=== PATIENT | female | born 1980 | race African-American/Black ===

== ENCOUNTER 2016-11-30 16:25 | Inpatient (IN) ==
--- NOTE | 2016-11-30 17:30 | Diag Imaging Result Doc PS360 ---
CHEST-2 VIEWS - 11/30/2016 INDICATION: cough TECHNIQUE: COMPARISON: 08/02/2016 FINDINGS: There is worsening in the moderate enlargement of the heart shadow. Pulmonary vascularity is normal. No focal infiltrates, pneumothorax, or pleural effusion. IMPRESSION: Worsening enlargement of the heart shadow consistent with either pericardial effusion or cardiomegaly. On the prior CT of 07/30/2016, this was global cardiomegaly. Electronically signed by Juliano Escudero 11/30/2016 5:27 PM
[2016-11-30] MEDS ORDERED: APRESOLINE IV ONE ×2 (18:01→19:16)
[2016-11-30 18:23] LABS: MANUAL DIFF NEEDED? NO
[2016-11-30] MEDS ORDERED: CATAPRES ONE (18:27)
[2016-11-30] MEDS ORDERED: CATAPRES PO ONE (18:29)
[2016-11-30 18:31] LABS: BASO% 0.3 % (0.0-0.8); EOS# 0.07 X1000 (0.0-0.7); EOS% 0.9 % (0.0-10.0); HEMATOCRIT 27.6 % (37.0-47.0); HEMOGLOBIN 8.4 g/dL (12.0-16.0); IMM GRAN# 0.02 X1000 (0.0-0.04); IMM GRAN% 0.3 % (0.0-0.5); LYMPH# 1.55 X1000 (1.2-3.4); LYMPH% 20.8 % (20.5-51.1); MCH 22.9 PG (27-31); MCHC 30.4 g/dL (33-37); MCV 75.2 FL (81-99); MONO# 0.58 X1000 (0.11-0.59); MONO% 7.8 % (1.7-9.3); MPV 10.8 FL (7.4-10.4); NEUT% 69.9 % (42.2-75.2); PLT 276 X1000 (130-400); RBC 3.67 XMIL (4.2-5.4)
[2016-11-30 18:40] LABS: PTT PL 27.9 Seconds (22.6-43.9)
[2016-11-30 18:44] LABS: INR 1.23 (0.86-1.15); PROTIME 15.8 Seconds (12.1-15.5)
[2016-11-30 18:48] LABS: AGAP 10; ALBUMIN 3.3 g/dL (3.5-5.0); ALKALINE PHOSPHATASE 62 U/L (32-104); BUN 6 mg/dL (8-22); CALCIUM 8.4 mg/dL (8.8-10.2); CHLORIDE 105 mmol/L (98-107); CK PROFILE 93 U/L (24-173); COSMO 272; GOT 31 U/L (10-30); GPT 35 U/L (10-36); POTASSIUM 3.1 mmol/L (3.5-5.1); SODIUM 137 mmol/L (136-145); TCO2 23 mmol/L (25-35); TOTAL PROTEIN 6.6 g/dL (6.3-8.3)
--- NOTE | 2016-11-30 18:57 | PROVIDER DOCUMENTATION ---
HPI-General Adult - General Chief Complaint: Cough Stated Complaint: COUGH/COLD SX/SOB Time Seen by Provider: 11/30/16 17:30 Source: patient Allergies/Adverse Reactions: Patient Allergies Allergy/AdvReac Type Severity Reaction Status Date / Time No Known Allergies Allergy Verified 11/30/16 16:45 Home Medications: Home Medication List Medication Instructions Recorded Confirmed Last Taken Type Amlodipine [Norvasc] 5 mg PO DAILY #30 tablet 08/03/16 11/30/16 Unknown Rx Carvedilol [Coreg] 12.5 mg PO BID #60 tablet 08/03/16 11/30/16 Unknown Rx Iron Carbonyl/Ascorbic Acid 1 each PO DAILY #30 tablet 08/03/16 11/30/16 Unknown Rx [Icar-C] LISINOpril [Prinivil] 20 mg PO DAILY #30 tablet 08/03/16 11/30/16 Unknown Rx Omeprazole [Prilosec] 40 mg PO DAILY #30 capsule. 08/03/16 11/30/16 Unknown Rx - History of Present Illness -Gen Adult Nature of Presenting Problems: pt presents complaining of 2 week history of nonproductive cough, dyspnea, pedal edema. Longstanding history of HTN. Not followed by a PCP. unclear what BP meds she is taking. Denies cp, headache, fever, back pain, abd pain, n/ v. Location of Pain/Injury: reports: none Pain Radiation: reports: no radiation Onset/Duration: reports: last week Timing: reports: still present Modifying Factors: improves with: nothing Similar Symptoms Previously?: No Recently seen or treated by another doctor?: No Review of Systems - Adult - REVIEW OF SYSTEMS - ADULT Constitutional: reports: no symptoms reported Eyes: reports: no symptoms reported Ears, Nose, Mouth & Throat: reports: no symptoms reported. denies: ear pain, sinus problem, throat pain Cardiovascular: reports: no symptoms reported Respiratory: reports: see HPI Gastrointestinal: reports: no symptoms reported. denies: abdominal pain, nausea Genitourinary: reports: no symptoms reported Musculoskeletal: reports: no symptoms reported Integumentary: reports: no symptoms reported Neurological: reports: no symptoms reported. denies: ataxia, dizziness/vertigo , paresthesia Psychiatric: reports: no symptoms reported Endocrine: reports: no symptoms reported Hematologic/Lymphatic: reports: no symptoms reported Allergic/Immunologic: reports: no symptoms reported All Other Systems: Reviewed and Negative Past History - Adult - PAST MEDICAL HISTORY-ADULT Review of Records: reports: Old Records Reviewed, Nursing Assessment Review, Medications Reviewed, Social history reviewed & non-contributory. Major Childhood Illnesses: reports: denies history Cardiovascular: reports: HTN Respiratory: reports: denies history Gastrointestinal: reports: denies history Obstetrical/Gynecological: reports: denies history Genitourinary: reports: denies history Musculoskeletal: reports: arthritis, chronic pain Neurological: reports: denies history Endocrine/Immune: reports: denies history Other Conditions: reports: denies history - PRIOR SURGERIES/PROCEDURES Surgical/Procedure History: reports: BTL, other (esophageal dilation) - PRIOR HOSPITALIZATIONS Prior Hospitalizations: reports: none - IMMUNIZATION STATUS Childhood Immunizations: See Nurse Assessment Flu Vaccine: See Nurse Assessment - FAMILY HISTORY Family History: reviewed, not pertinent - SOCIAL HISTORY Smoking: denies Substance Use: none/never Alcohol Use Frequency: never Living Situation: family Physical Exam-General - PHYSICAL EXAM-ADULT Initial Vital Signs Reviewed: Yes - CONSTITUTIONAL General Appearance: appears well, alert - EYES Eyes: PERRL/EOMI, other (pain conjunctivae) - HEAD, EARS, NOSE, MOUTH & THROAT HENMT: normocephalic/atraumatic, moist mucous membranes, normal ENT inspection - NECK Neck: non-tender, full range of motion, supple - RESPIRATORY Respiratory: lungs clear, normal breath sounds - CARDIOVASCULAR Cardiovascular: normal peripheral pulses, regular rate, rhythm - GASTROINTESTINAL (ABDOMEN) Abdominal Exam: non tender, soft - MUSCULOSKELETAL Back Exam: normal inspection Extremity: normal range of motion, pedal edema (+1 bilateral). 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, grossly normal, no motor/sensory deficits - PSYCHIATRIC Psych/Mental Status: normal mood/affect, oriented x 3 Progress - PLAN OF CARE/RESULTS Progress/Plan/Lab Results: Vital Signs - 8 hr 11/30/16 16:40 11/30/16 17:58 11/30/16 18:54 Temperature 97.9 F 98.7 F Pulse Rate 93 H 89 95 H Respiratory Rate 18 20 20 Blood Pressure 175/122 178/134 204/133 O2 Sat by Pulse Oximetry 100 95 97 Laboratory Results - last 24 hr 11/30/16 11/30/1611/30/17 18:18 18:18 18:18 WBC 7.44 RBC 3.67 L Hgb 8.4 L Hct 27.6 L MCV 75.2 L MCH 22.9 L MCHC 30.4 L RDW Std Deviation 19.9 H Plt Count 276 MPV 10.8 H Immature Gran % (Auto) 0.3 Neut % (Auto) 69.9 Lymph % (Auto) 20.8 [place] % (Auto) 7.8 Eos % (Auto) 0.9 Baso % (Auto) 0.3 Immature Gran # (Auto) 0.02 Neut # (Auto) 5.20 Lymph # (Auto) 1.55 [place] # (Auto) 0.58 Eos # (Auto) 0.07 Baso # (Auto) 0.02 PT INR APTT (Factor Assay) Sodium 137 Potassium 3.1 L Chloride 105 Carbon Dioxide 23 L Anion Gap 10 BUN 6 L Creatinine 0.9 Estimated GFR/1.73 m2 > 60 BUN/Creatinine Ratio 7 Glucose 101 Calculated Osmolality 272 Calcium 8.4 L Total Bilirubin 0.30 AST 31 H ALT 35 Alkaline Phosphatase 62 Creatine Kinase 93 Troponin T < 0.010 Total Protein 6.6 Albumin 3.3 L Globulin 3.0 Albumin/Globulin Ratio 1.0 Urine Test 11/30/16 11/30/16 18:18 18:31 WBC RBC Hgb Hct MCV MCH MCHC RDW Std Deviation Plt Count MPV Immature Gran % (Auto) Neut % (Auto) Lymph % (Auto) Carl[place] % (Auto) Eos % (Auto) Baso % (Auto) Immature Gran # (Auto) Neut # (Auto) Lymph # (Auto) Carl[place] # (Auto) Eos # (Auto) Baso # (Auto) PT 15.8 H INR 1.23 H APTT (Factor Assay) 27.9 Sodium Potassium Chloride Carbon Dioxide Anion Gap BUN Creatinine Estimated GFR/1.73 m2 BUN/Creatinine Ratio Glucose Calculated Osmolality Calcium Total Bilirubin AST ALT Alkaline Phosphatase Creatine Kinase Troponin T Total Protein Albumin Globulin Albumin/Globulin Ratio Urine Test NEGATIVE Orders Category Date Time Status Cardiac Monitoring DIRECTED Care 11/30/16 18:01 Active Saline Loc NOW Care 11/30/16 18:01 Active CHEST-2 VIEWS [RAD] Stat Exams 11/30/16 16:53 Completed CBC WITH ELECTRONIC DIFF [HEME] Stat Lab 11/30/16 18:18 Completed CK PROFILE [SP CHEM] Stat Lab 11/30/16 18:18 Completed COMPREHENSIVE METABOLIC PANEL [CHEM] Stat Lab 11/30/16 18:18 Completed TEST-URINE [PREG] Stat Lab 11/30/16 18:31 Completed PRO B-NATRIURETIC PEPTIDE Stat Lab 11/30/16 18:18 Received PROTIME WITH INR PL [COAG] Stat Lab 11/30/16 18:[address] [COAG] Stat Lab 11/30/16 18:18 Completed TROPONIN T Stat Lab 11/30/16 18:18 Completed UA NIMS W/REFLEX CULT PL [URINALYSIS] Stat Lab 11/30/16 18:31 Received Clonidine [Catapres] Med 11/30/16 18:27 Discontinued 0.2 mg .ROUTE .STK-MED ONE Clonidine [Catapres] Med 11/30/16 18:29 Discontinued 0.2 mg PO NOW ONE Hydralazine [Apresoline] Med 11/30/16 18:01 Discontinued 10 mg IV NOW ONE EKG [EKG] Stat Ther 11/30/16 18:01 Ordered Case and plan of care discussed with Dr. Mack. Pt refusing hemmocult. Result Diagrams: 11/30/16 18:18 11/30/16 18:18 - XRAY 1 XRAY Study: Chest Impression: See EMR Report XRAY Interpretation: enlarging cardiac shadow cardiomegaly vs effusion. - CONSULTS/PCP/HOSPITALIST Notification #1 *Consult/PCP/Hospitalist*: Dr. Singh Time Discussed: 19:10 Consult Disposition: Admit Departure - Departure Date of Disposition Decision: 11/30/16 Time of Disposition Decision: 19:23 DIAGNOSIS: Hypertensive emergency, Hypokalemia Anemia Qualifiers: Anemia type: unspecified type Qualified Code(s): D64.9 - Anemia, unspecified Disposition: ADMITTED INPATIENT 09 Certified Medical Emergency: Emergent Condition: Stable - Critical Care Note This patient required my direct & personal management of CC.: Yes Total Time (mins): 30 Critical Care Statement: This patient required my direct personal management to treat or rule out processes, the absence of which, could potentiallly result in sudden, clinically significant life or limb threatening deterioration. Attestation - Physician/ DA Attestation Patient care was provided by Advanced Practice Provider:: Yes Advanced Practice Provider:: Eulalio,Wilbert D Advanced Practice Provider documentation review:: The Mid-level provider documentation, treatment plan and medical decision making was reviewed by the physician who agrees with all treatment and medical decision making by the MLP.
[2016-11-30 18:58] LABS: BILIRUBIN URINE NEGATIVE (NEGATIVE); BLOOD URINE NEGATIVE (NEGATIVE); CLARITY CLEAR (CLEAR); COLOR YELLOW; GLUCOSE URINE NEGATIVE (NEGATIVE); LEUKOCYTES URINE TRACE (NEGATIVE); NITRITE URINE NEGATIVE (NEGATIVE); PH URINE 6.5; URINE CULTURE PL NEEDED? YES; URINE EPITHELIAL CELLS >10 /HPF (<10); URINE WBC <10 /HPF (<10); UROBILINOGEN URINE NORMAL
[2016-11-30 18:59] LABS: URINE CAST NONE SEEN /LPF; URINE CRYSTAL NONE SEEN /HPF; URINE SOURCE CLEAN CATCH
--- NOTE | 2016-11-30 19:15 | EKG Report ---
Test Performed on : 11/30/2016 7:10:46 PM Test Reason : CHEST PAIN Blood Pressure : / mmHG Vent. Rate : 092 BPM Atrial Rate : 092 BPM P-R Int : 160 ms QRS Dur : 104 ms QT Int : 400 ms P-R-T Axes : 049 023 -86 degrees QTc Int : 494 ms Normal sinus rhythm. Possible Left atrial enlargement ST \T\ T wave abnormality, consider inferior ischemia ST \T\ T wave abnormality, consider anterolateral ischemia Prolonged QT Abnormal ECG When compared with ECG of 30-JUL-2016 16:01, No significant change was found Unconfirmed Result
[2016-11-30] MEDS ORDERED: NITROGLYCERIN TOP ONE (19:16)
[2016-11-30] MEDS ORDERED: KLOR-CON PO ONE (19:24)
[2016-11-30] MEDS ORDERED: MORPHINE IV PRN (19:25)
[2016-11-30] MEDS ORDERED: ZOFRAN IV PRN (19:25)
[2016-11-30] MEDS: TYLENOL PO PRN (22:05)
[2016-11-30] MEDS ORDERED: VASELINE TOP PRN (22:07)
[2016-12-01] MEDS: TYLENOL PO PRN ×2 (05:55→21:18)
[2016-12-01] MEDS ORDERED: COREG PO SCH (09:00)
[2016-12-01] MEDS ORDERED: PRILOSEC PO SCH (09:00)
[2016-12-01] MEDS ORDERED: PRINIVIL PO SCH (09:00)
[2016-12-01] MEDS ORDERED: COZAAR PO SCH (09:00)
[2016-12-01 09:30] LABS: HEMATOCRIT 26.7 % (37.0-47.0); HEMOGLOBIN 8.2 g/dL (12.0-16.0); MCHC 30.7 g/dL (33-37); MCV 74.8 FL (81-99); MPV 11.5 FL (7.4-10.4); RBC 3.57 XMIL (4.2-5.4)
[2016-12-01 09:46] LABS: AGAP 11; ALBUMIN 3.2 g/dL (3.5-5.0); ALKALINE PHOSPHATASE 59 U/L (32-104); BUN 10 mg/dL (8-22); CALCIUM 8.2 mg/dL (8.8-10.2); CHLORIDE 103 mmol/L (98-107); COSMO 274; GOT 31 U/L (10-30); GPT 34 U/L (10-36); POTASSIUM 3.3 mmol/L (3.5-5.1); SODIUM 137 mmol/L (136-145); TCO2 23 mmol/L (25-35); TOTAL PROTEIN 6.2 g/dL (6.3-8.3)
[2016-12-01] MEDS: NORVASC PO SCH (09:53)
[2016-12-01] MEDS: ICAR-C PO SCH (09:53)
[2016-12-01] MEDS: APRESOLINE IV PRN ×2 (09:54→21:19)
[2016-12-01] MEDS: MORPHINE IV PRN ×2 (16:07→21:19)
--- NOTE | 2016-12-01 17:15 | HISTORY AND PHYSICAL ---
CHIEF COMPLAINT: Cough, dyspnea, lower extremity edema. HISTORY OF PRESENT ILLNESS: This is a 36-year-old female with a history of hypertension and esophageal stricture, who presented to the emergency room complaining of a nonproductive cough with dyspnea on exertion and lower extremity edema that has been present for roughly 2 weeks. She denied any chest pain, PND, or orthopnea. She does have a long history of hypertension, stating that she is really unclear of what blood pressures medicine she is taking. She does not have a primary care physician. She is unable to state where she actually got her prescriptions for her medicines. Her chest x-ray revealed worsening enlargement of the heart shadow consistent with pericardial effusion or cardiomegaly. On CT of 07/30/2016 there was global cardiomegaly. She was noted to have blood pressures in the 170s to 200s over 120-130 range for which she was given nitroglycerin, hydralazine, and clonidine in the emergency room with pressures coming down to the 150s to 170s over 80s to 90s. She was admitted to ICU for further evaluation and treatment. PAST MEDICAL HISTORY: Hypertension, noncompliance. PAST SURGICAL HISTORY: Denies. SOCIAL HISTORY: Denies alcohol, tobacco, or illicit drug use. HOME MEDICATIONS: A list will be obtained. PHYSICAL EXAMINATION: GENERAL: This is a 36-year-old female who is sitting in the bed, in no distress. VITAL SIGNS: Blood pressure is 156/89 with a heart rate of 76, respirations are 20, temperature is 98.2 degrees with room air saturations of 96 to 99%. HEENT: Head is normocephalic, atraumatic. Pupils equal, round, react to light. EOMs are intact. Sclerae anicteric. Mucous membranes are moist. NECK: Supple with trachea midline. CARDIOVASCULAR: Regular rate and rhythm. S1 and S2 appreciated. PULMONARY: Breath sounds are clear with no increased work of breathing noted. Chest does rise and fall symmetrically with respiration. GASTROINTESTINAL: Abdomen is soft, nontender, nondistended with bowel sounds in all 4 quadrants. BACK: No CVAT. No spine tenderness. MUSCULOSKELETAL: Good range of motion of joints. EXTREMITIES: No clubbing, cyanosis. She does have pretibial and pedal edema bilateral. Calves are nontender. Pulses are palpable x4. NEUROLOGIC: She is alert and oriented x3. Cranial nerves 2 through 12 grossly intact. DIAGNOSTICS: WBC is 7.4 with hemoglobin 8.4, hematocrit 27.6, and platelets of 276,000. Sodium is 137, potassium 3.1, BUN 6, creatinine 0.9, with a glucose of 101. Troponin is less than 0.010. Her chest x-ray revealed worsening enlargement of the heart shadow consistent with pericardial effusion or cardiomegaly. ASSESSMENT: 1. Cough. 2. Dyspnea on exertion. 3. Lower extremity edema. 4. Hypertension. 5. Noncompliance. 6. Global cardiomegaly on chest x-ray. 7. Anemia. 8. Hypertension, hypertensive emergency. 9. Hypokalemia. PLAN: She will be admitted to ICU for close monitoring. We will identify her home medications and continue as appropriate. We will obtain an echocardiogram. She did have an echocardiogram in July 2016 which revealed moderate to severe tricuspid regurgitation with severe pulmonary hypertension, moderate left ventricular enlargement with an EF of 30 to 35%, concentric hypertrophy. We will Hemoccult stools as she did have Hemoccult-positive stools in July 2016 during her hospitalization. Further treatments pending hospital course. Dictated by LIZETH Rivera for Michael Singh MD cc: LIZETH Rivera MD
[2016-12-01] MEDS: COREG PO SCH (21:18)
[2016-12-02 07:08] LABS: AGAP 9; ALBUMIN 3.2 g/dL (3.5-5.0); ALKALINE PHOSPHATASE 59 U/L (32-104); BUN 10 mg/dL (8-22); CALCIUM 8.1 mg/dL (8.8-10.2); CHLORIDE 106 mmol/L (98-107); COSMO 273; GOT 24 U/L (10-30); GPT 31 U/L (10-36); POTASSIUM 3.5 mmol/L (3.5-5.1); SODIUM 137 mmol/L (136-145); TCO2 22 mmol/L (25-35); TOTAL PROTEIN 6.3 g/dL (6.3-8.3)
[2016-12-02 07:09] LABS: HEMATOCRIT 27.6 % (37.0-47.0); HEMOGLOBIN 8.4 g/dL (12.0-16.0); MCHC 30.4 g/dL (33-37); MCV 75.4 FL (81-99); MPV 11.6 FL (7.4-10.4); RBC 3.66 XMIL (4.2-5.4)
[2016-12-02] MEDS: APRESOLINE PO SCH ×3 (08:06→16:08)
[2016-12-02] MEDS: ICAR-C PO SCH (08:06)
[2016-12-02] MEDS: PRILOSEC PO SCH (08:06)
[2016-12-02] MEDS: NORVASC PO SCH (08:06)
[2016-12-02] MEDS: COZAAR PO SCH (08:07)
[2016-12-02] MEDS: COREG PO SCH ×2 (08:07→20:11)
[2016-12-02] MEDS ORDERED: APRESOLINE PO SCH (09:00)
[2016-12-02] MEDS: MORPHINE IV PRN ×3 (09:24→20:11)
--- NOTE | 2016-12-02 13:50 | Diag Imaging Result Doc PS360 ---
EXAM: HEAD W/WO CONTRAST - 12/02/2016 HISTORY: HEADACHE TECHNIQUE: Without and with intravenous contrast. Dose reduction protocol. COMPARISON: None. FINDINGS: There is no evidence of intracranial hemorrhage, mass effect, midline shift, or hydrocephalus. There is no evidence of infarct, although acute infarcts may not be immediately visible. There is no abnormal enhancement identified. Visualized portions of paranasal sinuses and mastoid air cells appear clear. IMPRESSION: No visible acute intracranial abnormality. No hemorrhage, mass effect, or abnormal enhancement seen. Electronically signed by Fitz Culver 12/02/2016 1:47 PM
[2016-12-02] MEDS: APRESOLINE IV PRN ×2 (14:40→20:10)
--- NOTE | 2016-12-02 16:13 | CONSULTATION ---
DATE OF CONSULTATION: 12/02/2016 REASON FOR CONSULTATION: Cardiology was consulted for accelerated hypertension. HISTORY OF PRESENT ILLNESS: Ms. Rodgers is a 35-year-old black lady with history of hypertension diagnosed about 15 years back. She was admitted here with accelerated hypertension for the last 3 weeks. She says she has not had any medications. She ran out of the medications and did not refill them. She denies chest pain. She complains of having a headache which started recently. There is no retrosternal chest discomfort. She has dyspnea on exertion which is mild and stable. There is no orthopnea or paroxysmal nocturnal dyspnea. REVIEW OF SYSTEMS: A 14-point review of system was done.GI System: There is no history of nausea, vomiting, diarrhea. There is no history of melena. Central nervous system: There is no focal weakness to suggest a CVA or TIA. system: There is no dysuria or hematuria. Cardiovascular: When she came in, blood pressure was 170-200 and currently blood pressure was 180 systolic, was given hydralazine 10 mg IV. PAST MEDICAL HISTORY: Longstanding hypertension, noncompliant. PHYSICAL EXAMINATION: Vital Signs: Blood pressure 189/88. Cardiovascular: Normal jugular venous pressure. There is no thyromegaly. No carotid bruit. First and second heart sounds were heard. There is no S3 gallop. Respiratory: Normal air entry. There are no crepitations or rhonchi. Abdomen: Soft, obese, nontender. There was no guarding or rigidity. Bowel sounds were heard. Central nervous system: Alert and was moving all 4 extremities. Extremities: Examination of extremities revealed no pedal edema. ALLERGIES: Patient is not known to be allergic to any medication. SOCIAL HISTORY: She denies alcohol or tobacco abuse. LABORATORY AND RADIOLOGIC STUDIES: Head CT done revealed no obvious intracranial pathology. Sodium 137, potassium 3.5, BUN 10, creatinine 0.7. ProBNP 3027. Hematology: Hemoglobin 8.4 hematocrit 27, platelets 281,000. PROBLEM LIST: 1. Chronic anemia. 2. Uncontrolled accelerated hypertension. 3. Medical noncompliance. RECOMMENDATIONS: Her hydralazine dose was increased today as well as her beta blockers. We will increase the Norvasc to 5 mg a day. She is on multiple medications for blood pressure control and her problem has been with medical noncompliance. I suspect with the increase dosage, her blood pressure will be better controlled and we can increase the dose of hydralazine as well as diuretic should her blood pressure continue be elevated. Thank for the consult. cc: Pankaj Cifuentes MD
--- NOTE | 2016-12-02 16:59 | PROGRESS NOTE ---
DATE: 12/02/2016 SUBJECTIVE: Patient continues to complain of a headache. Otherwise, she has no complaints. She denies any chest pain, palpitations, dizziness, syncope, nausea, shortness of breath. OBJECTIVE: Vital Signs: Blood pressure is 195/116, with a heart rate of 79, respirations are 23, temperature is 97.9 degrees, with room air saturations of 92%-96%. Cardiovascular: Regular rate and rhythm. S1, S2 appreciated. Pulmonary: Breath sounds are clear with no increased work of breathing noted. Gastrointestinal: Abdomen is soft, nontender, nondistended with bowel sounds in all 4 quadrants. Extremities: No clubbing, cyanosis, or edema. Calves are nontender. Pulses are palpable x4. Neurologic: She is alert and oriented x3 with cranial nerves 2-12 grossly intact. LABS: WBC is 5.5, with hemoglobin 8.4, hematocrit 27.6, and platelets of 281,000. Sodium is 137, potassium 3.5, BUN 10, creatinine 0.7, with a glucose of 94. ASSESSMENT AND PLAN: 1. Accelerated hypertension. 2. Cough. Resolved. 3. Dyspnea on exertion. 4. Lower extremity edema. Resolved. 5. Hypertension. 6. Noncompliance with medication and followup. 7. Anemia. 8. Hypokalemia. 9. Systolic heart failure. We will continue to monitor in ICU. We will obtain a CT of the head due to persistent headache. We will increase her losartan. We will stop her ELIEL due to persistent cough. We will add losartan. We will add hydralazine p.o. 3 times a day, along with p.r.n. IV. We will increase her Coreg from 12.5 to 25 b.i.d. Cardiology has been consulted. We are awaiting their evaluation. Dictated by LIZETH Rivera for Michael Singh MD cc: LIZETH Rivera MD
[2016-12-02] MEDS: TYLENOL PO PRN (20:10)
[2016-12-03] MEDS: MORPHINE IV PRN ×2 (03:15→20:43)
[2016-12-03] MEDS: TYLENOL PO PRN ×2 (03:15→10:45)
[2016-12-03 05:38] LABS: MANUAL DIFF NEEDED? NO
[2016-12-03 05:47] LABS: BASO% 0.3 % (0.0-0.8); EOS# 0.13 X1000 (0.0-0.7); EOS% 1.9 % (0.0-10.0); HEMATOCRIT 30.1 % (37.0-47.0); HEMOGLOBIN 9.1 g/dL (12.0-16.0); IMM GRAN# 0.01 X1000 (0.0-0.04); IMM GRAN% 0.1 % (0.0-0.5); LYMPH# 1.39 X1000 (1.2-3.4); MCH 22.8 PG (27-31); MCHC 30.2 g/dL (33-37); MCV 75.4 FL (81-99); MONO# 0.57 X1000 (0.11-0.59); MONO% 8.2 % (1.7-9.3); MPV 11.9 FL (7.4-10.4); NEUT% 69.5 % (42.2-75.2); PLT 321 X1000 (130-400); RBC 3.99 XMIL (4.2-5.4)
[2016-12-03 06:04] LABS: AGAP 10; ALBUMIN 3.4 g/dL (3.5-5.0); ALKALINE PHOSPHATASE 63 U/L (32-104); BUN 10 mg/dL (8-22); CALCIUM 8.4 mg/dL (8.8-10.2); CHLORIDE 104 mmol/L (98-107); COSMO 273; GOT 16 U/L (10-30); GPT 25 U/L (10-36); POTASSIUM 3.6 mmol/L (3.5-5.1); SODIUM 136 mmol/L (136-145); TCO2 23 mmol/L (25-35); TOTAL PROTEIN 6.7 g/dL (6.3-8.3)
[2016-12-03] MEDS: PRILOSEC PO SCH (07:32)
[2016-12-03] MEDS: CATAPRES PO SCH ×2 (08:28→20:41)
[2016-12-03] MEDS: COZAAR PO SCH (08:28)
[2016-12-03] MEDS: APRESOLINE PO SCH ×3 (08:28→16:41)
[2016-12-03] MEDS: ICAR-C PO SCH (08:28)
[2016-12-03] MEDS: COREG PO SCH ×2 (08:28→20:41)
[2016-12-03] MEDS: NORVASC PO SCH (08:28)
[2016-12-03] MEDS: HYDROCHLOROTHIAZIDE PO SCH (09:27)
[2016-12-03] MEDS: APRESOLINE IV PRN (09:59)
--- NOTE | 2016-12-03 11:26 | PROGRESS NOTE ---
DATE: 12/03/2016 SUBJECTIVE: Ms. Rodgers states that she no longer has a headache. She denies any chest pain, palpitations, dizziness, syncope, shortness of breath. OBJECTIVE: Vital Signs: Blood pressure is 138/83 with a heart rate of 78, respirations are 19, temperature is 98.8 degrees with a room air saturation of 99%. Cardiovascular: Regular rate and rhythm. S1 and S2 appreciated. Pulmonary: Breath sounds are clear with no increased work of breathing noted. Gastrointestinal: Abdomen is soft, nontender, nondistended with bowel sounds in all 4 quadrants. Extremities: No clubbing, cyanosis, or edema. Calves are nontender. Pulses are palpable x4. Neurologic: She is alert and oriented x3. LABS: WBC is 6.9, with a hemoglobin of 9.1, hematocrit 30.1, and platelets of 321. Sodium is 136, potassium 3.6, BUN 10, creatinine 0.8, with a glucose of 131. ASSESSMENT: 1. Accelerated hypertension. 2. Cough, resolved. 3. Dyspnea on exertion. 4. Lower extremity edema, resolved. 5. Hypertension. 6. Noncompliance with medication and followup. 7. Chronic anemia. 8. Hypokalemia. 9. Systolic heart failure. PLAN: Will continue with her current medical regimen. Blood pressures are decreasing with her increased dose of Norvasc. We will continue to monitor. We will transfer her to the floor. We will follow with cardiology. Dictated by LIZETH Rivera for Michael Singh MD cc: LIZETH Rivera MD
[2016-12-04] MEDS: APRESOLINE IV PRN ×2 (00:54→08:35)
[2016-12-04] MEDS: PRILOSEC PO SCH (06:29)
[2016-12-04] MEDS: ICAR-C PO SCH (08:28)
[2016-12-04] MEDS: CATAPRES PO SCH (08:28)
[2016-12-04] MEDS: HYDROCHLOROTHIAZIDE PO SCH (08:28)
[2016-12-04] MEDS: COREG PO SCH (08:28)
[2016-12-04] MEDS: NORVASC PO SCH (08:28)
[2016-12-04] MEDS: APRESOLINE PO SCH ×3 (08:36→17:20)
[2016-12-04] MEDS ORDERED: ENTRESTO 24 MG-26 MG TABLET PO SCH (09:00)
[2016-12-04] MEDS ORDERED: PERCOCET-5 PO ONE (13:10)
[2016-12-04] MEDS ORDERED: TORADOL IV ONE (13:10)
--- NOTE | 2016-12-04 15:11 | Diag Imaging Result Doc PS360 ---
EXAM: DUPLEX RENAL ARTY OR VEIN LMTD HISTORY: HTN TECHNIQUE: Renal ultrasound with renal arterial Doppler COMMENT: The urinary bladder is unremarkable in appearance. The right kidney measures 9.2 x 4.5 x 3.8 cm the left is 11.5 x 4.2 x 4.3 cm. There is no evidence of mass or hydronephrosis. The renal artery ratio on the right is 0.86 in the resistive index 0.57. On the left side the renal artery ratio is 1.08 and the resistive index is 0.69. These are all within the normal range. IMPRESSION: Normal renal ultrasound. No evidence of renal vascular disease by Doppler. Electronically signed by Steven Gutierrez 12/04/2016 3:08 PM
[2016-12-04 15:43] VITALS: BP 149/100
--- NOTE | 2016-12-07 07:57 | DISCHARGE SUMMARY ---
ADMISSION DATE: 11/30/2016 DISCHARGE DATE: 12/04/2016 DIAGNOSES: 1. Accelerated hypertension. 2. Cough, resolved. 3. Dyspnea on exertion. 4. Lower extremity edema, resolved. 5. Hypertension. 6. Systolic heart failure. 7. Noncompliance with medication and followup. CONSULTS: Dr. Cifuentes. PROCEDURES: 1. On 12/02/2016, CT of the head revealed no visible acute intracranial abnormality. No hemorrhage, mass effect, or abnormal enhancement seen. 2. Duplex renal artery revealed normal renal ultrasound. No evidence of renal vascular disease by Doppler. HOSPITAL COURSE: Ms. Rodgers was admitted to the hospital in a hypertensive emergency, having blood pressures in the 170s-200s/120-130 range for which she was given nitroglycerin, hydralazine, and clonidine. She was then admitted to the ICU for close monitoring, being given IV Apresoline as well as instituting Norvasc, Coreg, and losartan. Cardiology was consulted and assisted with medication management. The patient has been admitted to the hospital prior by our service as well as cardiology, being discharged in July on amlodipine, Coreg, and lisinopril with the plan for her to follow up outpatient with cardiology or [facility], and possibly Entresto and Aldactone being added. The patient did not follow up. In fact, she did not fill any of her medications on discharge from the hospital. She was monitored in ICU. Once blood pressures were somewhat controlled, she was able to move out to the floor. Blood pressures remained in the 120s-150s/80s and 90s on Entresto, Apresoline, hydrochlorothiazide, clonidine, Coreg, and Norvasc. She was diuresed and her lower extremity edema did resolve. We did trend her electrolytes and replete as appropriate. The patient did complain of a headache occasionally for which she was given morphine. She denied any accompanying symptoms with her headache. For which she was given Morphine. DISCHARGE VITAL SIGNS: Blood pressure was 125/89, with a heart rate of 81, respirations 20, temperature of 98.9 degrees, with oxygen saturations of 99-100%. DISCHARGE ACTIVITY: As tolerated. DISCHARGE DIET: Healthy heart. FOLLOWUP: 1. She is to follow up with Dr. Cifuentes in 1-2 weeks. 2. She is to follow up with her primary care physician. As she states she does not have 1, she was given the number to the [facility]. Instructed to call them in the morning to begin the process of hopefully being excepted and followed by them. 3. She was once again instructed per myself as well as Dr. Cifuentes and Dr. Singh of the perils of not being compliant, continuing with these elevated blood pressures with the worst outcome as being a stroke or ultimately . She was not receptive of this; at times stating, "Yeah, yeah, yeah." We did also remind her of the importance of filling her medications and taking them as prescribed. 4. She is being discharged home in stable condition with family members. TIME SPENT: This is a greater than 30 minute discharge. Dictated by LIZETH Rivera for Michael Singh MD cc: LIZETH Rivera MD [facility]
== END 2016-12-04 18:21 | disposition home or self-care (01) ==
LOC: P.ED 16:25 → P.ICU 19:52 → P.MEDSURG 12-03 10:27
PROVIDERS: ATTEND Family Medicine